=== PATIENT | female | born 1935 | race Two or more races ===

== ENCOUNTER 2016-03-26 02:11 | Inpatient (IN) | payer MEDICARE ==
[~2016-03-26] VITALS: Ht 162.6 cm; Wt 59.4 kg
[2016-03-26] MEDS ORDERED: ALBUTEROL FS 2.5 MG/0.5 ML VIAL.NEB ONE (02:50)
[2016-03-26 02:51] LABS: BASOPHILS % (AUTO) 0.9 % (0.0-2.0); DIFF TOTAL % 100 %; EOSINOPHILS # (AUTO) 0.3 /CMM (0.0-0.7); EOSINOPHILS % (AUTO) 5.1 % (0.0-6.0); HEMATOCRIT 35 % (33-45); HEMOGLOBIN 11.3 g/dL (11.5-14.8); LYMPHOCYTES # (AUTO) 1.9 /CMM (0.8-4.8); MEAN CORPUSCULAR HEMOGLOBIN 25 PG (26.0-33.0); MEAN CORPUSCULAR HGB CONC 33 g/dl (31.0-36.0); MEAN CORPUSCULAR VOLUME 77 fL (82-100); MONOCYTES # (AUTO) 0.4 /CMM (0.1-1.30); MONOCYTES % (AUTO) 7.4 % (2.0-12.0); NEUTROPHILS # (AUTO) 2.5 /CMM (1.8-8.9); NEUTROPHILS % (AUTO) 48.6 % (43.0-81.0); PLATELET COUNT (AUTO) 220 /CMM (150-450); RED BLOOD CELL COUNT(AUTO) 4.48 MIL/uL (4.0-5.2); WHITE BLOOD COUNT (AUTO) 5.1 K/uL (4.3-11.0)
[2016-03-26] MEDS ORDERED: IPRATROPIUM NEB FS 0.5 MG/2.5 ML AMPUL.NEB ONE (02:51)
[2016-03-26] MEDS ORDERED: IPRATROPIUM NEB FS 0.5 MG/2.5 ML AMPUL.NEB NEB ONE (03:00)
[2016-03-26] MEDS ORDERED: ALBUTEROL FS 2.5 MG/0.5 ML VIAL.NEB NEB ONE (03:00)
[2016-03-26 03:06] LABS: ANION GAP 14 (5-14); CALCIUM, SERUM 8.7 mg/dL (8.5-10.1); CARBON DIOXIDE 27 mmol/L (21-32); CHLORIDE 105 mmol/L (98-107); CREATININE 1.3 mg/dL (0.6-1.3); GLUCOSE 147 mg/dL (74-106); POTASSIUM 3.2 mmol/L (3.5-5.1); SODIUM SERUM 143 mmol/L (136-145); UREA NITROGEN, BLOOD 29 mg/dL (7-18)
[2016-03-26 03:16] LABS: TROPONIN I 0.049 ng/mL (0.00-0.056)
[2016-03-26 03:20] LABS: ALANINE AMINOTRANSFERASE 18 U/L (12-78); ALBUMIN 3.5 g/dL (3.4-5.0); ASPARTATE AMINOTRANSFERASE 23 U/L (15-37); BILIRUBIN,DIRECT 0.1 mg/dL (0.0-0.2); BILIRUBIN,TOTAL 0.3 mg/dL (0.2-1.0); INDIRECT BILIRUBIN 0.2 mg/dL (0.0-1.1); LACTIC ACID 2.2 mmol/L (0.4-2.0); TOTAL PROTEIN, SERUM 6.7 g/dL (6.4-8.2)
[2016-03-26 03:22] LABS: INR 0.98 (0.87-1.13); PROTHROMBIN TIME 10.6 SECS (9.5-12.7)
[2016-03-26] MEDS ORDERED: ONDANSETRON HCL/PF 4 MG/2 ML VIAL ONE (03:30)
[2016-03-26] MEDS ORDERED: MORPHINE SULFATE INJ 2 MG/ML DISP.SYRIN ONE (03:30)
[2016-03-26] MEDS ORDERED: DILTIAZEM HCL 25 MG IV ONE (03:35)
[2016-03-26 03:46] LABS: *LACTIC ACID REFLEX FLAG YES
[2016-03-26] MEDS ORDERED: MORPHINE SULFATE INJ 2 MG/ML DISP.SYRIN IV ONE (04:00)
[2016-03-26] MEDS ORDERED: DILTIAZEM HCL 50 MG IV IV ONE (04:00)
[2016-03-26] MEDS ORDERED: ONDANSETRON HCL/PF 4 MG/2 ML VIAL IV ONE (04:00)
[2016-03-26 05:45] VITALS: BP 117/45
[2016-03-26] MEDS ORDERED: OMEP40CA37 PO (05:52)
[2016-03-26] MEDS ORDERED: CLON0.5T4 PO (05:52)
[2016-03-26] MEDS ORDERED: IBUP-1955 PO (05:52)
[2016-03-26] MEDS ORDERED: ROSU20TA PO (05:52)
[2016-03-26] MEDS ORDERED: POTA10CA43 PO (05:55)
[2016-03-26] MEDS ORDERED: LOSA1TAB39 PO (05:55)
[2016-03-26] MEDS ORDERED: MAG HYDROX/AL HYDROX/SIMETH 30 ML UDC PO PRN (06:00)
[2016-03-26] MEDS ORDERED: LORAZEPAM INJ 2 MG/ML VIAL IV PRN (06:00)
[2016-03-26] MEDS ORDERED: HYDROCODONE/APAP 5/325MG 1 EACH TABLET PO PRN (06:00)
[2016-03-26] MEDS ORDERED: ZOLPIDEM TARTRATE 5 MG TABLET PO PRN (06:00)
[2016-03-26] MEDS ORDERED: Z GUARD REMEDY 2 OZ OINT TP PRN (06:00)
[2016-03-26] MEDS ORDERED: ALBUTEROL FS 2.5 MG/3 ML VIAL.NEB NEB PRN (06:00)
[2016-03-26] MEDS ORDERED: METF500T4 PO (06:02)
[2016-03-26] MEDS ORDERED: ASPI-991 PO (06:02)
[2016-03-26] MEDS ORDERED: ALBU18HF2 IH (06:02)
[2016-03-26] MEDS ORDERED: RANI150T8 PO (06:02)
[2016-03-26] MEDS ORDERED: ONDA8TAB13 PO (06:02)
[2016-03-26] MEDS ORDERED: ALBU8.5H2 IH (06:02)
[2016-03-26] MEDS ORDERED: DIPH25TA25 PO (06:02)
[2016-03-26] MEDS ORDERED: ALBUTEROL FS 2.5 MG/3 ML VIAL.NEB ONE (06:30)
[2016-03-26] MEDS ORDERED: DILTIAZEM HCL 50 MG IV IV PRN (06:30)
[2016-03-26 08:00] VITALS: BP 104/93
[2016-03-26] MEDS ORDERED: IV NS 0.9% 250 ML BAG IV ONE (08:30)
[2016-03-26] MEDS ORDERED: IV SET PRIMARY PUMP SET 1 EA INFUS.SET MC ONE (08:46)
[2016-03-26] MEDS: IV NS 0.9% 1,000 ML IV PRN ×2 (08:50→21:43)
[2016-03-26] MEDS: PANTOPRAZOLE 40 MG TABLET.DR PO SCH (08:53)
[2016-03-26] MEDS: methylPREDNISolone SOD SUCC 125 MG/2ML VIAL IV SCH ×3 (08:53→16:56)
[2016-03-26] MEDS ORDERED: POTASSIUM CHLORIDE 20 MEQ TAB.PRT.SR PO ONE (09:00)
[2016-03-26] MEDS ORDERED: diphenhydrAMINE HCL ELIX 25 MG/10 ML UDC PO PRN (09:30)
[2016-03-26] MEDS: diphenhydrAMINE HCL 25 MG CAPSULE PO PRN (09:39)
[2016-03-26] MEDS ORDERED: LEVALBUTEROL HCL NEB 1.25 MG/0.5 ML VIAL.NEB IH SCH (11:00)
[2016-03-26] MEDS: IPRATROPIUM NEB FS 0.5 MG/2.5 ML AMPUL.NEB NEB SCH ×4 (11:37→23:30)
[2016-03-26] MEDS: LEVALBUTEROL HCL NEB 1.25 MG/0.5 ML VIAL.NEB IH SCH ×3 (11:37→23:30)
[2016-03-26 12:00] VITALS: BP 137/53
[2016-03-26] MEDS: DRONEDARONE HYDROCHLORIDE 400 MG TABLET PO SCH ×2 (13:04→16:53)
[2016-03-26 13:21] LABS: THYROID STIMULATING HORMONE 1.151 uIU/mL (0.358-3.74)
[2016-03-26 16:00] VITALS: BP 128/72
[2016-03-26] MEDS: RIVAROXABAN 15 MG TABLET PO SCH (16:55)
[2016-03-26] MEDS ORDERED: ALBUTEROL SULFATE 8 GM HFA.AER.AD IH PRN (17:00)
[2016-03-26] MEDS ORDERED: RIVAROXABAN 10 MG TABLET PO SCH (17:00)
[2016-03-26] MEDS ORDERED: clonazePAM 0.5 MG TABLET PO PRN (17:00)
[2016-03-26] MEDS ORDERED: diphenhydrAMINE HCL 25 MG CAPSULE PO PRN (17:30)
[2016-03-26] MEDS: METFORMIN 500 MG TABLET PO SCH (17:42)
[2016-03-26] MEDS ORDERED: LEVOFLOXACIN 500 MG /D5W 100ML 500 MG in PREMIX 1 EA IV ONE (18:30)
[2016-03-26 20:00] VITALS: BP 102/56
[2016-03-26] MEDS: LORAZEPAM 0.5 MG TABLET PO PRN (20:42)
[2016-03-27] VITALS: BP 110/56
[2016-03-27] MEDS: IPRATROPIUM NEB FS 0.5 MG/2.5 ML AMPUL.NEB NEB SCH ×5 (03:30→19:10)
[2016-03-27 04:00] VITALS: BP 123/52
[2016-03-27] MEDS: ACETAMINOPHEN 325 MG TABLET PO PRN (04:48)
[2016-03-27] MEDS: IV NS 0.9% 1,000 ML IV PRN ×2 (04:48→14:41)
[2016-03-27] MEDS: LORAZEPAM 0.5 MG TABLET PO PRN (07:03)
[2016-03-27] MEDS: PANTOPRAZOLE 40 MG TABLET.DR PO SCH (07:06)
[2016-03-27] MEDS: LEVALBUTEROL HCL NEB 1.25 MG/0.5 ML VIAL.NEB IH SCH ×2 (07:35→16:15)
[2016-03-27 07:53] LABS: BASOPHILS % (AUTO) 0.2 % (0.0-2.0); DIFF TOTAL % 100 %; HEMATOCRIT 32 % (33-45); HEMOGLOBIN 10.6 g/dL (11.5-14.8); LYMPHOCYTES # (AUTO) 0.6 /CMM (0.8-4.8); LYMPHOCYTES % (AUTO) 5.7 % (20.0-44.0); MEAN CORPUSCULAR HEMOGLOBIN 26 PG (26.0-33.0); MEAN CORPUSCULAR HGB CONC 33 g/dl (31.0-36.0); MEAN CORPUSCULAR VOLUME 77 fL (82-100); MONOCYTES # (AUTO) 0.2 /CMM (0.1-1.30); MONOCYTES % (AUTO) 2.3 % (2.0-12.0); NEUTROPHILS # (AUTO) 9.1 /CMM (1.8-8.9); NEUTROPHILS % (AUTO) 91.8 % (43.0-81.0); PLATELET COUNT (AUTO) 184 /CMM (150-450); RED BLOOD CELL COUNT(AUTO) 4.12 MIL/uL (4.0-5.2)
[2016-03-27 08:00] VITALS: BP 122/58
[2016-03-27 08:06] LABS: ANION GAP 13 (5-14); CALCIUM, SERUM 8.2 mg/dL (8.5-10.1); CARBON DIOXIDE 27 mmol/L (21-32); CHLORIDE 106 mmol/L (98-107); GLUCOSE 169 mg/dL (74-106); PHOSPHORUS 3.2 mg/dL (2.5-4.9); POTASSIUM 3.6 mmol/L (3.5-5.1); SODIUM SERUM 142 mmol/L (136-145); UREA NITROGEN, BLOOD 25 mg/dL (7-18)
[2016-03-27 08:25] LABS: LACTIC ACID 2.4 mmol/L (0.4-2.0)
[2016-03-27] MEDS: DRONEDARONE HYDROCHLORIDE 400 MG TABLET PO SCH ×2 (08:40→17:47)
[2016-03-27] MEDS: METFORMIN 500 MG TABLET PO SCH ×2 (08:41→17:46)
[2016-03-27] MEDS: ATORVASTATIN 40 MG TABLET PO SCH (08:41)
[2016-03-27] MEDS: ASPIRIN EC 81 MG TABLET.DR PO SCH (08:41)
[2016-03-27] MEDS: FAMOTIDINE (20 MG) 20 MG TABLET PO SCH (08:41)
[2016-03-27] MEDS: predniSONE 20 MG TABLET PO SCH (08:47)
[2016-03-27 08:48] LABS: *LACTIC ACID REFLEX FLAG YES
[2016-03-27] MEDS ORDERED: Medication Not On Formulary EA (Omeprazole 40 MG) PO SCH (09:00)
[2016-03-27] MEDS ORDERED: LOSARTAN/HCTZ 50-12.5MG/ 1 EA TABLET PO SCH ×2 (09:00)
[2016-03-27] MEDS: MAGNESIUM HYDROXIDE 30 ML UDC PO PRN ×2 (09:31→20:28)
[2016-03-27 11:12] LABS: IRON, SERUM 22 ug/dl (50-175); PERCENT SATURATION 8 % (14-33); TOTAL IRON BINDING CAPACITY 293 ug/dl (250-450)
[2016-03-27] MEDS ORDERED: IV SET PRIMARY PUMP SET 1 EA INFUS.SET MC ONE (11:18)
[2016-03-27] MEDS: Magnesium 1GM/D5W 100ML PREMIX 100 ML IV SCH ×2 (11:26→12:27)
[2016-03-27] MEDS ORDERED: ESCITALOPRAM OXALATE (10 MG) 10 MG TABLET PO SCH (13:00)
[2016-03-27] MEDS: DULOXETINE HCL 30 MG CAPSULE.DR PO SCH (14:38)
[2016-03-27 16:00] VITALS: BP 121/50
[2016-03-27] MEDS: LEVOFLOXACIN 250 MG /D5W 50 ML 250 MG in PREMIX 1 EA IV SCH (17:46)
[2016-03-27] MEDS: RIVAROXABAN 15 MG TABLET PO SCH (17:47)
[2016-03-27 20:00] VITALS: BP 128/68
[2016-03-27] MEDS: LOSARTAN POTASSIUM 50 MG TABLET PO SCH (20:29)
[2016-03-28] VITALS: BP 125/88
[2016-03-28] MEDS: IPRATROPIUM NEB FS 0.5 MG/2.5 ML AMPUL.NEB NEB SCH ×7 (00:02→23:37)
[2016-03-28] MEDS: LEVALBUTEROL HCL NEB 1.25 MG/0.5 ML VIAL.NEB IH SCH ×4 (00:03→23:38)
[2016-03-28 04:00] VITALS: BP 124/49
[2016-03-28] MEDS: IV NS 0.9% 1,000 ML IV PRN ×2 (06:15→20:21)
[2016-03-28] MEDS: ACETAMINOPHEN 325 MG TABLET PO PRN (07:00)
[2016-03-28] MEDS: PANTOPRAZOLE 40 MG TABLET.DR PO SCH (07:00)
[2016-03-28 07:15] LABS: BASOPHILS % (AUTO) 0.1 % (0.0-2.0); DIFF TOTAL % 100 %; EOSINOPHILS # (AUTO) 0.1 /CMM (0.0-0.7); EOSINOPHILS % (AUTO) 0.9 % (0.0-6.0); HEMATOCRIT 29 % (33-45); HEMOGLOBIN 9.8 g/dL (11.5-14.8); LYMPHOCYTES # (AUTO) 1.1 /CMM (0.8-4.8); LYMPHOCYTES % (AUTO) 13.7 % (20.0-44.0); MEAN CORPUSCULAR HEMOGLOBIN 26 PG (26.0-33.0); MEAN CORPUSCULAR HGB CONC 33 g/dl (31.0-36.0); MEAN CORPUSCULAR VOLUME 77 fL (82-100); MONOCYTES # (AUTO) 0.4 /CMM (0.1-1.30); MONOCYTES % (AUTO) 4.4 % (2.0-12.0); NEUTROPHILS # (AUTO) 6.8 /CMM (1.8-8.9); NEUTROPHILS % (AUTO) 80.9 % (43.0-81.0); PLATELET COUNT (AUTO) 147 /CMM (150-450); RED BLOOD CELL COUNT(AUTO) 3.79 MIL/uL (4.0-5.2); WHITE BLOOD COUNT (AUTO) 8.4 K/uL (4.3-11.0)
[2016-03-28 07:31] LABS: CREATININE 1.1 mg/dL (0.6-1.3); POTASSIUM 3.7 mmol/L (3.5-5.1)
[2016-03-28 08:00] VITALS: BP 135/57
[2016-03-28] MEDS: ASPIRIN EC 81 MG TABLET.DR PO SCH (08:57)
[2016-03-28] MEDS: LOSARTAN POTASSIUM 50 MG TABLET PO SCH ×2 (08:57→20:19)
[2016-03-28] MEDS: ATORVASTATIN 40 MG TABLET PO SCH (08:58)
[2016-03-28] MEDS: DULOXETINE HCL 30 MG CAPSULE.DR PO SCH (08:58)
[2016-03-28] MEDS: METFORMIN 500 MG TABLET PO SCH ×2 (08:58→17:17)
[2016-03-28] MEDS: DRONEDARONE HYDROCHLORIDE 400 MG TABLET PO SCH ×2 (08:58→17:18)
[2016-03-28] MEDS: FAMOTIDINE (20 MG) 20 MG TABLET PO SCH (08:59)
[2016-03-28] MEDS: predniSONE 20 MG TABLET PO SCH (09:00)
[2016-03-28 11:44] LABS: LACTIC ACID 2.8 mmol/L (0.4-2.0)
[2016-03-28 12:12] LABS: *LACTIC ACID REFLEX FLAG YES
[2016-03-28] MEDS ORDERED: IV NS 0.9% 500 ML IV ONE (13:00)
[2016-03-28] MEDS ORDERED: BENZONATATE 100 MG CAPSULE PO PRN (13:30)
[2016-03-28 13:46] LABS: BILIRUBIN,DIRECT 0.1 mg/dL (0.0-0.2); BILIRUBIN,TOTAL 0.2 mg/dL (0.2-1.0)
[2016-03-28] MEDS: ONDANSETRON HCL/PF 4 MG/2 ML VIAL IVP PRN (14:27)
[2016-03-28 16:00] VITALS: BP 136/68
[2016-03-28] MEDS: LEVOFLOXACIN 250 MG /D5W 50 ML 250 MG in PREMIX 1 EA IV SCH (17:16)
[2016-03-28] MEDS: RIVAROXABAN 15 MG TABLET PO SCH (17:17)
[2016-03-28] MEDS: DOCUSATE SODIUM 100 MG CAPSULE PO SCH (17:17)
[2016-03-28 20:00] VITALS: BP 121/60
[2016-03-28] MEDS: MAGNESIUM HYDROXIDE 30 ML UDC PO PRN (21:49)
[2016-03-29] MEDS: ONDANSETRON HCL/PF 4 MG/2 ML VIAL IVP PRN (00:10)
[2016-03-29] MEDS: IV NS 0.9% 1,000 ML IV PRN ×2 (03:42→12:37)
[2016-03-29] MEDS: IPRATROPIUM NEB FS 0.5 MG/2.5 ML AMPUL.NEB NEB SCH ×6 (03:51→23:56)
[2016-03-29 04:00] VITALS: BP 114/50
[2016-03-29] MEDS: LEVALBUTEROL HCL NEB 1.25 MG/0.5 ML VIAL.NEB IH SCH ×3 (07:36→23:56)
[2016-03-29 08:00] VITALS: BP 137/61
[2016-03-29] MEDS: ASPIRIN EC 81 MG TABLET.DR PO SCH (08:15)
[2016-03-29] MEDS: DOCUSATE SODIUM 100 MG CAPSULE PO SCH ×2 (08:17→17:01)
[2016-03-29] MEDS: DULOXETINE HCL 30 MG CAPSULE.DR PO SCH (08:17)
[2016-03-29] MEDS: PANTOPRAZOLE 40 MG TABLET.DR PO SCH (08:18)
[2016-03-29] MEDS: FAMOTIDINE (20 MG) 20 MG TABLET PO SCH (08:18)
[2016-03-29] MEDS: ATORVASTATIN 40 MG TABLET PO SCH (08:18)
[2016-03-29] MEDS: DRONEDARONE HYDROCHLORIDE 400 MG TABLET PO SCH ×2 (08:18→17:00)
[2016-03-29] MEDS: LOSARTAN POTASSIUM 50 MG TABLET PO SCH ×2 (08:19→21:33)
[2016-03-29] MEDS: METFORMIN 500 MG TABLET PO SCH (08:20)
[2016-03-29] MEDS: predniSONE 20 MG TABLET PO SCH (08:23)
[2016-03-29 08:25] LABS: CALCIUM, SERUM 7.6 mg/dL (8.5-10.1); POTASSIUM 3.9 mmol/L (3.5-5.1)
[2016-03-29 08:47] LABS: LACTIC ACID 2.1 mmol/L (0.4-2.0)
[2016-03-29 10:13] LABS: BASOPHILS % (AUTO) 0.2 % (0.0-2.0); DIFF TOTAL % 100 %; EOSINOPHILS % (AUTO) 0.2 % (0.0-6.0); HEMATOCRIT 28 % (33-45); HEMOGLOBIN 9.3 g/dL (11.5-14.8); LYMPHOCYTES # (AUTO) 1.2 /CMM (0.8-4.8); LYMPHOCYTES % (AUTO) 20.3 % (20.0-44.0); MEAN CORPUSCULAR HEMOGLOBIN 26 PG (26.0-33.0); MEAN CORPUSCULAR HGB CONC 33 g/dl (31.0-36.0); MEAN CORPUSCULAR VOLUME 78 fL (82-100); MONOCYTES # (AUTO) 0.4 /CMM (0.1-1.30); MONOCYTES % (AUTO) 5.8 % (2.0-12.0); NEUTROPHILS # (AUTO) 4.5 /CMM (1.8-8.9); NEUTROPHILS % (AUTO) 73.5 % (43.0-81.0); PLATELET COUNT (AUTO) 132 /CMM (150-450); RED BLOOD CELL COUNT(AUTO) 3.61 MIL/uL (4.0-5.2); WHITE BLOOD COUNT (AUTO) 6.1 K/uL (4.3-11.0)
[2016-03-29] MEDS ORDERED: DEXTROSE 50%-WATER 50 ML DISP.SYRIN IV PRN (11:00)
[2016-03-29] MEDS ORDERED: INSULIN REGULAR, HUMAN 100 UNIT/ML 3 ML VIAL SQ PRN (11:00)
[2016-03-29] MEDS ORDERED: *INSULIN REGULAR(HUMULIN R)HUM 100 UNIT/ML VIAL SQ PRN (11:00)
[2016-03-29] MEDS ORDERED: BLOOD SUGAR DIAGNOSTIC 1 EACH STRIP IN SCH (12:00)
[2016-03-29 12:20] LABS: LACTIC ACID 2.7 mmol/L (0.4-2.0)
[2016-03-29] MEDS: BLOOD SUGAR DIAGNOSTIC 1 EACH STRIP VI SCH ×3 (12:28→21:35)
[2016-03-29 12:48] LABS: *LACTIC ACID REFLEX FLAG YES
[2016-03-29 16:00] VITALS: BP 129/63
[2016-03-29] MEDS: RIVAROXABAN 15 MG TABLET PO SCH (17:01)
[2016-03-29] MEDS: LEVOFLOXACIN 250 MG /D5W 50 ML 250 MG in PREMIX 1 EA IV SCH (17:01)
[2016-03-29 20:00] VITALS: BP 131/58
[2016-03-30] MEDS: IV NS 0.9% 1,000 ML IV PRN (01:21)
[2016-03-30] MEDS: diphenhydrAMINE HCL 25 MG CAPSULE PO PRN (03:10)
[2016-03-30] MEDS: IPRATROPIUM NEB FS 0.5 MG/2.5 ML AMPUL.NEB NEB SCH ×4 (03:30→14:30)
[2016-03-30 04:00] VITALS: BP 152/83
[2016-03-30] MEDS: LEVALBUTEROL HCL NEB 1.25 MG/0.5 ML VIAL.NEB IH SCH ×2 (06:57→14:30)
[2016-03-30 08:00] VITALS: BP 162/76
[2016-03-30] MEDS: BLOOD SUGAR DIAGNOSTIC 1 EACH STRIP VI SCH (08:00)
[2016-03-30 08:44] LABS: CALCIUM, SERUM 7.4 mg/dL (8.5-10.1); CREATININE 0.8 mg/dL (0.6-1.3); POTASSIUM 3.5 mmol/L (3.5-5.1)
[2016-03-30] MEDS: ASPIRIN EC 81 MG TABLET.DR PO SCH (09:00)
[2016-03-30] MEDS ORDERED: predniSONE 20 MG TABLET PO SCH (09:00)
[2016-03-30] MEDS ORDERED: DRON400T2 PO (10:28)
[2016-03-30] MEDS ORDERED: Rivaroxaban PO (10:28)
[2016-03-30] MEDS ORDERED: Benzonatate PO (10:28)
[2016-03-30] MEDS ORDERED: Losartan Potassium PO (10:28)
[2016-03-30] MEDS ORDERED: ALBU1.257 NEB (10:28)
[2016-03-30] MEDS ORDERED: DULO30CA2 PO (10:28)
[2016-03-30] MEDS ORDERED: PRED5TAB48 PO (10:28)
[2016-03-30 10:53] VITALS: BP 165/76
[2016-03-30] MEDS: LOSARTAN POTASSIUM 50 MG TABLET PO SCH (10:53)
[2016-03-30] MEDS: DULOXETINE HCL 30 MG CAPSULE.DR PO SCH (10:54)
[2016-03-30] MEDS: DOCUSATE SODIUM 100 MG CAPSULE PO SCH (10:54)
[2016-03-30] MEDS: FAMOTIDINE (20 MG) 20 MG TABLET PO SCH (10:54)
[2016-03-30] MEDS: PANTOPRAZOLE 40 MG TABLET.DR PO SCH (10:55)
[2016-03-30] MEDS: ATORVASTATIN 40 MG TABLET PO SCH (10:55)
[2016-03-30] MEDS: DRONEDARONE HYDROCHLORIDE 400 MG TABLET PO SCH (10:55)
[2016-03-30] MEDS ORDERED: Calcium Gluconate 1GM/10ML 4.65 MEQ in IV D5W 50 ML IV ONE (11:00)
[2016-03-30] MEDS ORDERED: SECONDARY IV SET 1 EA INFUS.SET MC ONE (12:42)
[2016-03-30] MEDS ORDERED: LEVOFLOXACIN (250MG) 250 MG TABLET PO SCH (18:00)
== END 2016-03-30 16:37 | disposition home or self-care (01) | DRG 189 ==
LOC: ER 02:16 → TELE1 05:31 → TELE-TD 06:08 → TELE1 12:54 → MEDSG1 03-27 11:43
PROVIDERS: ADMIT Internal Medicine; ATTEND Internal Medicine
DX: J96.01 Acute respiratory failure with hypoxia (principal); J45.901 Unspecified asthma with (acute) exacerbation; E87.2 Acidosis; N17.9 Acute kidney failure, unspecified; J44.0 Chronic obstructive pulmonary disease with (acute) lower respiratory infection; J20.9 Acute bronchitis, unspecified; F41.9 Anxiety disorder, unspecified; E78.5 Hyperlipidemia, unspecified; E11.9 Type 2 diabetes mellitus without complications; I10 Essential (primary) hypertension; K21.9 Gastro-esophageal reflux disease without esophagitis; Z96.649 Presence of unspecified artificial hip joint; I48.0 Paroxysmal atrial fibrillation; F32.9 Major depressive disorder, single episode, unspecified; E87.6 Hypokalemia; Z95.0 Presence of cardiac pacemaker; K59.09 Other constipation; E86.0 Dehydration; Z88.5 Allergy status to narcotic agent
CPT/HCPCS: 36415; 71010-TC; 80048-TC; 80076-TC; 82247-TC; 82248-TC; 82306; 82728-TC; 82962-TC; 83540-TC; 83605-TC; 83735-TC; 83880; 84100-TC; 84439-TC; 84443-TC; 84484-TC; 85025-TC; 85730-TC; 87040-TC; 87081-TC; 94799-TC; A4216; A4606; J0610; J1815; J1956; J2060; J2270; J2405; J2930; J3475; J3490; J7030; J7040; J7050; J7060; Q0163; Z7610